=== PATIENT | male | born 1955 | race African-American/Black ===

== ENCOUNTER 2024-08-05 07:50 | Day surgery (SDC) | payer OTHER ==
[2024-08-05 08:25] VITALS: BMI 25.0
[2024-08-05] MEDS ORDERED: LIDOCAINE HCL/PF 2% SDV 5ML VIAL ONE (08:27)
[2024-08-05] MEDS ORDERED: PROPOFOL 40 ML ONE (08:27)
[2024-08-05 09:20] VITALS: TEMP 98
[2024-08-05 09:38] VITALS: RESP 18
[2024-08-05 09:39] VITALS: BP 122/76; PULSE 75
== END 2024-08-05 09:40 | disposition home or self-care (01) ==
LOC: FASU-ENDO 07:50
PROVIDERS: ATTEND Internal Medicine Gastroenterology
PROC: 0DJD8ZZ Inspection of Lower Intestinal Tract, Via Natural or Artificial Opening Endoscopic (ICD-10-PCS; principal; 2024-08-05 08:45)
DX: Z12.11 Encounter for screening for malignant neoplasm of colon (principal)